=== PATIENT | female | born 1995 | race Hispanic/Latino ===

== ENCOUNTER 2022-10-08 09:10 | Emergency (ER) | payer OTHER ==
[2022-10-08 10:03] LABS: Wet Prep Clue Cells Clue Cells Absent (None Seen); Wet Prep Trichomonas Trichomonas Absent (None Seen)
[2022-10-08 10:10] LABS: Bilirubin Negative (Negative); Blood, Urine Negative (Negative); Clarity Clear (Clear); Glucose, Urine (Dipstick) Negative (Negative); Ketone, Urine Negative (Negative); Leukocyte Negative (Negative); Nitrite Negative (Negative); Protein, Urine (Dipstick) Negative (Neg-Trace); Urobilinogen 0.2 mg/dL (Less than 2)
[2022-10-08] MEDS ORDERED: Fluconazole 100 MG TAB ONE (10:54)
== END 2022-10-08 11:00 | disposition home or self-care (01) ==
LOC: MADERS 09:10
DX: O99.891 Other specified diseases and conditions complicating pregnancy (principal); N89.8 Other specified noninflammatory disorders of vagina; Z3A.32 32 weeks gestation of pregnancy
CPT/HCPCS: 81003; 87210

== ENCOUNTER 2022-11-04 12:33 | Outpatient (CLI) | payer OTHER ==
[2022-11-05 19:52] LABS: Group B Streptococcus by PCR DETECTED (NotDetected)
== END 2022-11-04 12:34 | disposition home or self-care (01) ==
LOC: MADLABBHPM 12:33
PROVIDERS: ATTEND Family Medicine
DX: Z34.83 Encounter for supervision of other normal pregnancy, third trimester (principal)
CPT/HCPCS: 87653